=== PATIENT | male | born 1990 | race Caucasian/White ===

== ENCOUNTER 2017-05-08 13:48 | Emergency (ER) | payer BC ==
--- NOTE | 2017-05-08 13:57 | UC ---
Nausea/Vomiting/Diarrhea HPI - HPI Summary HPI Summary: 26 year old male presents with complains of nausea/vomiting/fever/bodyaches and diarrhea. - History of Current Complaint Stated Complaint: NAUSEA VOMITING ACHY SINUS Time Seen by Provider: 05/08/17 13:56 Hx Obtained From: Patient Onset/Duration: Sudden Onset Severity Initially: Moderate Severity Currently: Moderate Location: Diffuse - Allergies/Home Medications Allergies/Adverse Reactions: Allergies Allergy/AdvReac Type Severity Reaction Status Date / Time Amoxicillin Allergy Vomiting Verified 05/08/17 14:52 Home Medications: Home Medications FLUoxetine CAP* [PROzac CAP*] 60 mg PO DAILY 05/08/17 [History Confirmed ] Steroid Cream DAILY 05/08/17 [History] PMH/Surg Hx/FS Hx/Imm Hx Previously Healthy: Yes Review of Systems Constitutional: Negative Skin: Negative Eyes: Negative ENT: Nasal Discharge, Sinus Congestion, Sinus Pain/Tenderness Respiratory: Negative Cardiovascular: Negative Gastrointestinal: Abdominal Pain, Diarrhea, Nausea Genitourinary: Negative Motor: Negative Neurovascular: Negative Musculoskeletal: Negative Neurological: Negative Psychological: Negative All Other Systems Reviewed And Are Negative: Yes Physical Exam Triage Information Reviewed: Yes Vital Signs Reviewed: Yes Eye Exam: Normal ENT: Positive: Pharyngeal erythema, Nasal congestion, Nasal drainage, Sinus tenderness Dental Exam: Normal Neck exam: Normal Neck: Positive: 1 Respiratory Exam: Normal Cardiovascular Exam: Normal Abdomen Description: Positive: Other: - diffuse pain/cramping Musculoskeletal Exam: Normal Neurological Exam: Normal Psychological Exam: Normal Skin Exam: Normal Naus/Vom/Diarrhea Course/Dx - Differential Dx/Diagnosis Provider Diagnoses: sinusitis. post nasal drip pharyngeal erythema Condition At Discharge: Stable Discharge - Discharge Plan Condition: Stable Disposition: HOME Prescriptions: Benzonatate CAP* [Tessalon 100 MG CAP*] 100 mg PO TID PRN #30 cap PRN Reason: Cough DOXYcycline CAP(*) [DOXYcycline 100MG CAP(*)] 100 mg PO BID #14 cap Guaifenesin-Codeine [Cheratussin AC] 1 teasp PO BEDTIME PRN #120 ml MDD 5 ml PRN Reason: Cough LoraTADine TAB(NF) [Claritin 10 MG TAB(NF)] 10 mg PO DAILY PRN #30 tab PRN Reason: Cough Ondansetron ODT TAB* [Zofran 4 MG Odt TAB*] 4 mg PO Q8H PRN #9 tab.odt PRN Reason: Nausea Patient Education Materials: Sinusitis (ED) Forms: *Work Release Referrals: Non Staff,Doctor [Primary Care Provider] -
[2017-05-08 14:51] VITALS: BP 135/81
== END 2017-05-08 15:29 | disposition home or self-care (01) ==
LOC: UCCORT 13:48
DX: J32.9 Chronic sinusitis, unspecified (principal); R09.82 Postnasal drip
CPT/HCPCS: 87502; 99202; G0463

== ENCOUNTER 2019-05-05 17:57 | Emergency (ER) | payer BC, OTHER ==
[2019-05-05 18:43] VITALS: BP 113/70
--- NOTE | 2019-05-05 20:28 | UC ---
Respiratory Complaint HPI - HPI Summary HPI Summary: 28 yo male with cough and congestion x 3 weeks or so recently stopped smoking about 2 week ago developed fever and "cold symptoms" greater and a week about developed severe unrelenting nausea (no vomiting) and profuse diarrea (4-5 episodes/day) no recent fever has chills - History of Current Complaint Chief Complaint: UCGeneralIllness Stated Complaint: NAUSEA,DIZZINESS,DIARRHEA Time Seen by Provider: 05/05/19 20:06 Hx Obtained From: Patient Onset/Duration: Gradual Onset, Lasting Weeks Timing: Constant Severity Initially: Mild Severity Currently: Moderate Pain Intensity: 0 Pain Scale Used: 0-10 Numeric Character: Cough: Nonproductive Aggravating Factors: Exertion, Recumbent Position Associated Signs And Symptoms: Positive: Chills, Wheezing, Dizziness, Nasal Congestion. Negative: Dyspnea, Fever, Pleuritic Chest Pain, Hemoptysis, Calf Pain, Calf Swelling, Edema, URI, Hoarseness, Sinus Discomfort - Allergies/Home Medications Allergies/Adverse Reactions: Allergies Allergy/AdvReac Type Severity Reaction Status Date / Time amoxicillin Allergy Vomiting Verified 05/05/19 18:36 Home Medications: Home Medications DULoxetine DR CAP* [Cymbalta CAP*] 60 mg PO DAILY 05/05/19 [History Confirmed ] PMH/Surg Hx/FS Hx/Imm Hx Previously Healthy: Yes - Surgical History Surgical History: Yes Surgery Procedure, Year, and Place: laser removal of warts 2016. cholecystectomy 2018 - Family History Known Family History: Positive: Hypertension, Non-Contributory Negative: Respiratory Disease - Social History Alcohol Use: None Substance Use Type: None Smoking Status (MU): Former Smoker When Did the Patient Quit Smoking/Using Tobacco: 04/2019 Review of Systems All Other Systems Reviewed And Are Negative: Yes Constitutional: Positive: Chills, Fatigue Skin: Positive: Negative Eyes: Positive: Negative ENT: Positive: Nasal Discharge Respiratory: Positive: Cough, Other - wheezing Cardiovascular: Positive: Negative Gastrointestinal: Positive: Diarrhea, Nausea Genitourinary: Positive: Negative Motor: Positive: Negative Neurovascular: Positive: Negative Musculoskeletal: Positive: Negative Neurological: Positive: Negative Psychological: Positive: Negative Physical Exam Triage Information Reviewed: Yes Appearance: Well-Appearing, No Pain Distress, Well-Nourished Vital Signs: Initial Vital Signs Temp 97.8 F 05/05/19 18:37 Pulse 82 05/05/19 18:37 Resp 16 05/05/19 18:37 BP 113/70 05/05/19 18:37 Pulse Ox 100 05/05/19 18:37 Vital Signs Reviewed: Yes Eyes: Positive: Conjunctiva Clear ENT: Positive: Hearing grossly normal, Nasal congestion, TMs normal, Other - mass. Negative: Nasal drainage, Tonsillar swelling, Tonsillar exudate Dental Exam: Normal Neck: Positive: Supple, Nontender, No Lymphadenopathy Respiratory: Positive: No respiratory distress, No accessory muscle use, Wheezing Cardiovascular: Positive: RRR, No Murmur Abdomen Description: Positive: Nontender, No Organomegaly. Negative: CVA Tenderness (R), CVA Tenderness (L) Bowel Sounds: Positive: Present Musculoskeletal: Positive: ROM Intact, No Edema Neurological: Positive: Alert Psychological Exam: Normal Skin Exam: Normal Diagnostics - Radiology No standard instances Radiology Interpretation Completed By: ED Physician Summary of Radiographic Findings: NAD Respiratory Course/Dx - Differential Dx/Diagnosis Provider Diagnosis: Lesion of tonsil Discharge ED - Sign-Out/Discharge Documenting (check all that apply): Patient Departure All imaging exams completed and their final reports reviewed: No - Discharge Plan Condition: Stable Disposition: HOME Patient Education Materials: Acute Diarrhea (ED), Bronchospasm (ED), Nutrition Tips for Relief of Diarrhea (ED) Forms: *Work Release Referrals: Jacek Wang MD [Medical Doctor] - 2 Weeks (ask for a [facility] APPT- for evaluation and treatment of right tonsilar lesion) Additional Instructions: Blood work pending Bring in stool for studies use inhaler as directed I suggest you go to the ER for fever or other new or worsening symptoms See Dr Mccoy Thursday for recheck - Billing Disposition and Condition Condition: STABLE Disposition: Home
[2019-05-05 20:40] LABS: Influenza A Molecular NEGATIVE (Negative); Influenza B Molecular NEGATIVE (Negative)
[2019-05-05] MEDS ORDERED: Ondansetron ODT TAB* 4 MG PO ONE ×2 (21:12)
[2019-05-05] MEDS ORDERED: Albuterol HFA INHALER* 8 gm MDI INH ONE (21:13)
[2019-05-06 11:25] LABS: Albumin 4.5 g/dL (3.2-5.2); Calcium 9.8 mg/dL (8.6-10.3); Potassium 3.9 mmol/L (3.5-5.0); Total Bilirubin 0.4 mg/dL (0.2-1.0)
[2019-05-06 11:29] LABS: ABS Basophils 0.1 10^3/ul (0-0.2); ABS Eosinophils 0.2 10^3/ul (0-0.6); ABS Lymphocytes 2.6 10^3/ul (1.0-4.8); ABS Monocytes 0.5 10^3/ul (0-0.8); ABS Neutrophils 3.4 10^3/ul (1.5-7.7); Eosinophil % 2.3 %; Hematocrit 47 % (42-52); Hemoglobin 16.4 g/dL (14.0-18.0); Lymphocyte % 38.8 %; Mean Corpuscular HGB Conc 35 g/dL (31-36); Mean Corpuscular Hemoglobin 30 pg (27-31); Mean Corpuscular Volume 85 fL (80-94); Mean Platelet Volume 8.7 fL (7.4-10.4); Nucleated Red Blood Cells % 0.5; Platelet Count 262 10^3/uL (150-450); Red Blood Count 5.56 10^6 /uL (4.18-5.48); Red Cell Distribution Width 13 % (10-15); White Blood Count 6.8 10^3/uL (3.5-10.8)
[2019-05-06 11:31] LABS: Albumin/Globulin Ratio 1.5 (1-3); BUN/Creatinine Ratio 14.1 (8-20); EGFR African American 109.7 (>60); EGFR Non-African American 90.7 (>60); Total Protein 7.5 g/dL (6.4-8.9)
--- NOTE | 2019-05-06 22:09 | UC ---
- Progress Note Progress Note: Final radiologist reading of chest x-ray from May 05, 2019 is no acute disease process. Provider interpretation of the same date is the same therefore there is no discrepancy. Course/Dx - Diagnoses Provider Diagnoses: Lesion of tonsil Discharge ED - Sign-Out/Discharge Documenting (check all that apply): Patient Departure All imaging exams completed and their final reports reviewed: Yes - Discharge Plan Condition: Stable Disposition: HOME Prescriptions: Ondansetron TAB* [Zofran Tab*] 4 mg PO Q6H PRN #10 tab PRN Reason: Nausea Patient Education Materials: Acute Diarrhea (ED), Bronchospasm (ED), Nutrition Tips for Relief of Diarrhea (ED) Forms: *Work Release Referrals: Jacek Wang MD [Medical Doctor] - 2 Weeks (ask for a [employer] APPT- for evaluation and treatment of right tonsilar lesion) Additional Instructions: Blood work pending Bring in stool for studies use inhaler as directed I suggest you go to the ER for fever or other new or worsening symptoms See Dr Mccoy Thursday for recheck - Billing Disposition and Condition Condition: STABLE Disposition: Home
== END 2019-05-05 22:30 | disposition home or self-care (01) ==
LOC: UCCORT 17:57
DX: J35.8 Other chronic diseases of tonsils and adenoids (principal); R05 Cough; R09.81 Nasal congestion; R11.0 Nausea; R42 Dizziness and giddiness; R19.7 Diarrhea, unspecified; Z88.0 Allergy status to penicillin; Z87.891 Personal history of nicotine dependence
CPT/HCPCS: 36415; 71046; 80053; 85025; 87045; 87046; 87077; 87328; 87329; 87493; 87899; 99213; A9270-GY; G0463